=== PATIENT | female | born 1990 | race Two or more races ===

== ENCOUNTER 2016-08-31 16:21 | Emergency (ER) | payer MEDICAID ==
[~2016-08-31] VITALS: Ht 162.6 cm; Wt 81.6 kg
[~2016-08-31 16:21] MED LIST: IBUPROFEN600 MG ORAL; NITROFURANTOIN100 M2 ORAL; ZOFRAN ODT4 MG ORAL
--- NOTE | 2016-08-31 17:18 | Emergency Room Report ---
History of Present Illness General Chief Complaint: Pain Source: Patient (Ayse Grover) Present Illness HPI 26-year-old female presents to emergency Department complaining of left ankle pain 7/10 in severity x1 week status post mechanical slip and fall down stairs. Patient states that she was seen by her PCP who gave her radiology requisition however she did not receive the results of the imaging, and patient continues to have pain and swelling and is unable to get a hold of her doctor. Patient denies previous injury to the affected extremity. Patient states pain is worse with weightbearing. Patient denies hitting her head or loss of consciousness. Patient denies nausea or vomiting. Patient reports bruising to the left ankle. Denies numbness tingling or loss of sensation or gross motor movements of the extremities, incontinence of bowel or bladder. Denies CP, Palpitations, LOC, AMS, dizziness, Changes in Vision, Sensation, paresthesias, or a sudden severe headache. (Ayse Grover) Allergies: Coded Allergies: No Known Allergies (Unverified , 06/10/15) Patient History Past Medical History: see triage record Past Surgical History: none Pertinent Family History: none Last Menstrual Period: 08/07/16 Now: No Immunizations: UTD Reviewed Nursing Documentation: PMH: Agreed, PSxH: Agreed (Ayse Grover) Nursing Documentation-PMH Past Medical History: No Stated History (Ayse Grover) Review of Systems All Other Systems: negative except mentioned in HPI (Ayse Grover) Physical Exam Vital Signs Date Time Temp Pulse Resp B/P Pulse Ox O2 Delivery O2 Flow Rate FiO2 08/31/16 16:41 98.6 91 14 131/72 100 Room Air Sp02 EP Interpretation: reviewed, normal General Appearance: no apparent distress, alert, GCS 15, non-toxic Head: normocephalic, atraumatic Eyes: bilateral eye PERRL, bilateral eye normal inspection ENT: hearing grossly normal, normal pharynx, no angioedema, normal voice Neck: full range of motion, supple/symm/no masses Respiratory: chest non-tender, lungs clear, normal breath sounds, speaking full sentences Cardiovascular #1: regular rate, rhythm, no edema Gastrointestinal: non tender Rectal: deferred Genitourinary: normal inspection, no CVA tenderness Musculoskeletal: back normal, gait/station normal, normal range of motion, no calf tenderness, tender - TTP to the lateral left ankle, swelling noted. Neurologic: alert, oriented x3, responsive, motor strength/tone normal, sensory intact, speech normal Psychiatric: judgement/insight normal, memory normal, mood/affect normal, no suicidal/homicidal ideation Skin: normal color, no rash, warm/dry, well hydrated, hematoma - left lateral ankle has hematoma noted, and mild swelling. Lymphatic: no adenopathy (Ayse Grover) Procedures Splinting Splinting : Consent: Verbal Location: left ankle Pre-Made Type: KALPESH wrap Pre-Proc Neuro Vasc Exam: normal Post-Proc Neuro Vasc Exam: normal Patient Tolerated: Well Complications: None (Ayse rGover) Medical Decision Making PA Attestation Dr. Mcelroy is my supervising Physician whom patient management has been discussed with. (Ayse Grover) Diagnostic Impression: Primary Impression: Ankle sprain Qualified Codes: S93.402A - Sprain of unspecified ligament of left ankle, initial encounter ER Course Pt. presents to the ED c/o lateral left ankle pain status post falling down stairs approximately one week ago. Ddx considered but are not limited to Fracture, dislocation, contusion, Sprain/ Strain/Spasm, Epidural abscess, Neoplastic mets. Vital signs: are WNL, pt. is afebrile H&PE are most consistent with Sprain will r/o fx with imaging. ORDERS: - X-ray Left Ankle 3 views - negative for fx, Dislocation, or significant soft tissue injury, per preliminary read in ED by Dr. Mcelroy ED INTERVENTIONS: - 600mg IBU PO - Kalpesh wrap applied to the left ankle by medic technician. Pt. remains neurovascularly intact. -Pt is provided with crutches. DISCHARGE: At this time pt. is stable for d/c to home. Will provide printed patient care instructions, and any necessary prescriptions. Care plan and follow up instructions have been discussed with the patient prior to discharge. (Ayse Grover) ER Course I agree with PA HPI and PE, as well as their assessment/plan. I also concur with PA review of imaging and rhythm strip without additional interpretation. (CINDY MCELROY M.D.) Last Vital Signs Date Time Temp Pulse Resp B/P Pulse Ox O2 Delivery O2 Flow Rate FiO2 08/31/16 16:41 98.6 91 14 131/72 100 Room Air (Ayse Grover) Disposition: HOME, SELF-CARE Condition: Stable Scripts Ibuprofen* (MOTRIN*) 600 Mg Tablet 600 MG ORAL THREE TIMES A DAY, #30 TAB 0 Refills Prov: Ayse Grover 08/31/16 Patient Instructions: Ankle Sprain Additional Instructions: Take medications as directed. Follow up with PCP in 3-5 days Return sooner to ED if new symptoms occur, or current symptoms become worse. Do not drink alcohol, drive, or operate heavy machinery while taking [ ] as this may cause drowsiness. Ayse Grover Aug 31, 2016 17:18 CINDY MCELROY M.D. Sep 01, 2016 19:37
[2016-08-31] MEDS ORDERED: IBUPROFEN600 MG ORAL (17:36)
[2016-08-31 17:49] VITALS: BP 128/69
[2016-08-31 17:50] VITALS: BP 131/72
--- NOTE | 2016-09-13 14:10 | Diagnostic Imaging Report ---
Indication: PAIN Technique: 3 views of the left ankle Comparison: none Findings: No acute fractures. No dislocations. The joint spaces are preserved. Impression: Negative
== END 2016-08-31 17:50 | disposition home or self-care (01) ==
LOC: EMR 17:05
DX: S93.402A Sprain of unspecified ligament of left ankle, initial encounter (principal); W01.0XXA Fall on same level from slipping, tripping and stumbling without subsequent striking against object, initial encounter; Y93.9 Activity, unspecified; Y92.9 Unspecified place or not applicable
CPT/HCPCS: 99283

== ENCOUNTER 2016-09-24 13:48 | Emergency (ER) | payer MEDICAID ==
[~2016-09-24] VITALS: Ht 165.1 cm; Wt 81.6 kg
[2016-09-24] MEDS ORDERED: IBUPROFEN600 MG ORAL (14:23)
--- NOTE | 2016-09-24 14:23 | Emergency Room Report ---
History of Present Illness General Chief Complaint: General Complaint Source: Patient Present Illness HPI 26-year-old female presents emergency department complaining of continued pain in the right ankle status post being diagnosed with right ankle sprain about one month ago. Patient states that she was given a work note however at work he did not accommodate her or her work note. Patient states that she was still required to do long hours of prolonged standing in addition she walking. Patient states she continues to have pain despite taking Motrin. Patient denies followup with PCP. Patient also reports bilateral breast tenderness x1 year that is episodic in nature and usually resolves around her menstrual cycle time. Patient denies palpating breast masses or denies history of breast cancer in the family. Patient denies erythema, increased temperature to palpation, and denies dry nipples or nipple d/c. denies night sweats or changes in weight. Patient denies new fall or trauma other than not being able to rest the affected extremity. pt states pain is localized to right ankle and rates as 8/10 in severity exacerbated with prolonged weight bearing. Denies CP, Palpitations, LOC, AMS, dizziness, Changes in Vision, Sensation, paresthesias, or a sudden severe headache. Allergies: Coded Allergies: No Known Allergies (Unverified , 06/10/15) Patient History Past Medical History: see triage record Past Surgical History: none Pertinent Family History: none Last Menstrual Period: last month Now: No Immunizations: UTD Reviewed Nursing Documentation: PMH: Agreed, PSxH: Agreed Nursing Documentation-PMH Past Medical History: No Stated History Review of Systems All Other Systems: negative except mentioned in HPI Physical Exam Vital Signs Date Time Temp Pulse Resp B/P Pulse Ox O2 Delivery O2 Flow Rate FiO2 09/24/16 13:51 97.9 82 16 137/80 99 Room Air Sp02 EP Interpretation: reviewed, normal General Appearance: no apparent distress, alert, GCS 15, non-toxic Head: normocephalic, atraumatic Eyes: bilateral eye PERRL, bilateral eye normal inspection ENT: hearing grossly normal, normal pharynx, no angioedema, normal voice Neck: full range of motion, supple/symm/no masses Respiratory: chest non-tender, lungs clear, normal breath sounds, speaking full sentences, other - no evidence of infection to the breasts bilaterally: no erythema, no increased temperature to palpation, no palpable masses, no d/c noted. Cardiovascular #1: regular rate, rhythm, no edema Gastrointestinal: normal bowel sounds, non tender, soft, no guarding, no rebound Rectal: deferred Genitourinary: normal inspection, no CVA tenderness Musculoskeletal: back normal, gait/station normal, normal range of motion, non- tender, other - pt. is observed to be ambulatory without crutches, and is not wearing BERNABE wrap as recommended. no swelling noted, no bruising Neurologic: alert, oriented x3, responsive, motor strength/tone normal, sensory intact, speech normal Psychiatric: judgement/insight normal, memory normal, mood/affect normal, no suicidal/homicidal ideation Skin: normal inspection, normal color, no rash, warm/dry, other - pt. is observed to be ambulatory without crutches, and is not wearing BERNABE wrap as recommended. Lymphatic: no adenopathy Medical Decision Making PA Attestation Dr. hernandez is my supervising Physician whom patient management has been discussed with. Diagnostic Impression: Primary Impression: Right ankle sprain Qualified Codes: S93.401D - Sprain of unspecified ligament of right ankle, subsequent encounter Additional Impression: Breast tenderness in female ER Course 26-year-old female presents emergency department complaining of continued pain in the right ankle status post being diagnosed with right ankle sprain about one month ago. Patient states that she was given a work note however at work he did not accommodate her or her work note. Patient states that she was still required to do long hours of prolonged standing in addition she walking. Patient states she continues to have pain despite taking Motrin. Patient denies followup with PCP. Patient also reports bilateral breast tenderness x1 year that is episodic in nature and usually resolves around her menstrual cycle time. Patient denies palpating breast masses or denies history of breast cancer in the family. Patient denies erythema, increased temperature to palpation, and denies dry nipples or nipple d/c. Patient denies new fall or trauma other than not being able to rest the affected extremity. pt states pain is localized to right ankle and rates as 8/10 in severity exacerbated with prolonged weight bearing Ddx considered but are not limited to Fracture, dislocation, contusion, Sprain/ Strain/Spasm, Epidural abscess, Neoplastic mets., lipoma, mastitis, LAD Vital signs: are WNL, pt. is afebrile H&PE are most consistent with ankle sprain with delayed healing due to inability to properly rest ankle and non-compliant with conservative treatment. pt. is observed to be ambulatory without crutches, and is not wearing BERNABE wrap as recommended. ORDERS: - X-ray not required at this time, no new injury. Pt is recommended to follow up with PCP as soft tissue injuries not responsive to conservative treatment may warrant MRI. ED INTERVENTIONS: - d/w pt that she does not exhibit signs of infection of either of the breasts , and recommend follow up with OBGYN. DISCHARGE: At this time pt. is stable for d/c to home. Will provide printed patient care instructions, and any necessary prescriptions. Care plan and follow up instructions have been discussed with the patient prior to discharge. Last Vital Signs Date Time Temp Pulse Resp B/P Pulse Ox O2 Delivery O2 Flow Rate FiO2 09/24/16 13:51 97.9 82 16 137/80 99 Room Air Disposition: HOME, SELF-CARE Condition: Stable Scripts Ibuprofen* (MOTRIN*) 600 Mg Tablet 600 MG ORAL THREE TIMES A DAY, #30 TAB 0 Refills Prov: Ayse Grover 09/24/16 Patient Instructions: Ankle Sprain, [id number], Breast Tenderness Additional Instructions: Take medications as directed. -Follow up with PCP in 3-5 days if symptoms persist MRI imaging is recommended. - Follow up with OBGYN for outpatient evaluation of breast tenderness, there is no evidence of infection at this time. Return sooner to ED if new symptoms occur, or current symptoms become worse. - Please note that this Emergency Department Report was dictated using [employer] operator technology software, occasionally this can lead to erroneous entry secondary to interpretation by the dictation equipment. Ayse Grover Sep 24, 2016 14:23
[2016-09-24 14:37] VITALS: BP 137/80
== END 2016-09-24 14:37 | disposition home or self-care (01) ==
LOC: EMR 14:00
DX: S93.401D Sprain of unspecified ligament of right ankle, subsequent encounter (principal); N64.4 Mastodynia
CPT/HCPCS: 99283

== ENCOUNTER 2016-10-11 17:03 | Emergency (ER) | payer MEDICAID ==
[~2016-10-11] VITALS: Ht 165.1 cm; Wt 81.6 kg
[2016-10-11 17:18] VITALS: BP 114/70
[2016-10-11] MEDS ORDERED: TYLENOL EXTRA500 MG ORAL (17:23)
--- NOTE | 2016-10-11 17:23 | Emergency Room Report ---
History of Present Illness General Chief Complaint: Pain Source: Patient Present Illness HPI 26-year-old female presents to the emergency department complaining of continued 10 out of 10 pain in the left ankle x2 months. Patient was seen here in the emergency department on 2 prior occasions was previously diagnosed with ankle sprain after negative imaging patient denies new trauma or fall. Patient states previously prescribed Motrin was not helping and she did not followup with her PCP patient also states she has not been using Kalpesh wrap or crutches as previously prescribed. Patient denies nausea vomiting fevers chills, bruising patient reports swelling. She denies erythema or similar symptoms in other extremities or other joints. She denies abdominal pain rashes or recent illness. Patient states pain is localized it does not radiate. She also reports that she needs a note showing she was seen here in the ER today and is requesting additional work notes. Denies numbness tingling or loss of sensation or gross motor movements of the extremities, incontinence of bowel or bladder. Denies CP, Palpitations, LOC, AMS, dizziness, Changes in Vision, Sensation, paresthesias, or a sudden severe headache. Allergies: Coded Allergies: No Known Allergies (Unverified , 06/10/15) Patient History Past Medical History: see triage record Past Surgical History: none Pertinent Family History: none Last Menstrual Period: 09/23/16 Now: No Immunizations: UTD Reviewed Nursing Documentation: PMH: Agreed, PSxH: Agreed Nursing Documentation-PMH Past Medical History: No Stated History Review of Systems All Other Systems: negative except mentioned in HPI Physical Exam Vital Signs Date Time Temp Pulse Resp B/P Pulse Ox O2 Delivery O2 Flow Rate FiO2 10/11/16 17:12 98.2 76 17 114/70 98 Room Air Sp02 EP Interpretation: reviewed, normal General Appearance: no apparent distress, alert, GCS 15, non-toxic Head: normocephalic, atraumatic Eyes: bilateral eye PERRL, bilateral eye normal inspection ENT: hearing grossly normal, normal pharynx, no angioedema, normal voice Neck: full range of motion, supple/symm/no masses Respiratory: lungs clear, normal breath sounds, speaking full sentences Cardiovascular #1: regular rate, rhythm, no edema Cardiovascular #2: 2+ dorsalis pedis (R), 2+ dorsalis pedis (L) Musculoskeletal: back normal, gait/station normal, normal range of motion, no calf tenderness, other - Pt has FROM without pain, and is observed to be ambulatory, with a normal steady gait, no observed compensation durring gait, pt. able to bear full weight, tender - mild left ankle TTP, no swelling, no erythema, no bruising, no obvious deformity Neurologic: alert, oriented x3, responsive, motor strength/tone normal, sensory intact, normal gait, speech normal Psychiatric: judgement/insight normal, memory normal, mood/affect normal, no suicidal/homicidal ideation Skin: normal color, no rash, warm/dry, well hydrated, other - no erythema, no increased temperature to palpation Lymphatic: no adenopathy Medical Decision Making PA Attestation Dr. Hogan is my supervising Physician whom patient management has been discussed with. Diagnostic Impression: Primary Impression: Encounter for medical screening examination Additional Impression: Ankle pain Qualified Codes: M25.572 - Pain in left ankle and joints of left foot ER Course 26-year-old female presents to the emergency department complaining of continued 10 out of 10 pain in the left ankle x2 months. Patient was seen here in the emergency department on 2 prior occasions was previously diagnosed with ankle sprain after negative imaging patient denies new trauma or fall. Patient states previously prescribed Motrin was not helping and she did not followup with her PCP because he does not take walk-ins. patient also states she has not been using Kalpesh wrap or crutches as previously prescribed. Patient denies nausea vomiting fevers chills, bruising patient reports swelling. She denies erythema or similar symptoms in other extremities or other joints. She denies abdominal pain rashes or recent illness. Patient states pain is localized it does not radiate. She also reports that she needs a note showing she was seen here in the ER today and is requesting additional work notes. Ddx considered but are not limited to Fracture, dislocation, contusion, Sprain/ Strain/Spasm, Epidural abscess, Neoplastic mets. Vital signs: are WNL, pt. is afebrile H&PE are most consistent with ankle pain, no acute injury, non-compliance with kalpesh wrap/crutches. pt. does not exhibit signs of compensation with gait, no obvious deformities, no swelling , erythema, or increased temperature to palpation, no evidence of infection. ORDERS: - X-ray's not required at this time, previous imaging was negative, and pt. has no new trauma. ED INTERVENTIONS: - Tylenol PO -- Pt. habitually asks for work notes, and long periods of light duty for work, I have seen this pt. on two previous ED visits for this complaint, and have discussed each time that she needs to follow up with PCP if symptoms continue. on the last visit I explained to the pt. that she has been given the maximum amount of days off. also she was non-compliant on previous visits for use of kalpesh wrap and crutches I discussed with patient that conservative treatment for non-acute injuries only works if consistent with treatment. d/w pt. that she is stable for outpatient evaluation, and that I do not suspect an emergent / life-threatening condition at this time. DISCHARGE: At this time pt. is stable for d/c to home. Will provide printed patient care instructions, and any necessary prescriptions. Care plan and follow up instructions have been discussed with the patient prior to discharge. Last Vital Signs Date Time Temp Pulse Resp B/P Pulse Ox O2 Delivery O2 Flow Rate FiO2 10/11/16 17:12 98.2 76 17 114/70 98 Room Air Disposition: HOME, SELF-CARE Condition: Stable Scripts Acetaminophen* (TYLENOL EXTRA STRENGTH*) 500 Mg Tablet 500 MG ORAL Q8H, #30 TAB 0 Refills Prov: Ayse Grover 10/11/16 Referrals: [facility]ERR[facility] (PCP) Patient Instructions: Ankle Pain Additional Instructions: Take medications as directed. Follow up with PCP in 3-5 days * You have received a medical screening exam here in the ED, at this time you are cleared from an emergency medical standpoint, and are Stable for Outpatient follow up. There is no emergency medical condition to treat at this time, further evaluation for your symptoms needs to be done as an outpatient basis. - Please note that this Emergency Department Report was dictated using [employer] electrical technology software, occasionally this can lead to erroneous entry secondary to interpretation by the dictation equipment. Ayse Grover Oct 11, 2016 17:23
[2016-10-11 17:42] VITALS: BP 114/70
== END 2016-10-11 17:43 | disposition home or self-care (01) ==
LOC: EMR 17:15
DX: M25.572 Pain in left ankle and joints of left foot (principal); Z00.00 Encounter for general adult medical examination without abnormal findings
CPT/HCPCS: 99283

== ENCOUNTER 2018-01-05 12:55 | Emergency (ER) | payer MEDICAID ==
[~2018-01-05] VITALS: Ht 165.1 cm; Wt 86.2 kg
[~2018-01-05 12:55] MED LIST changes: +TYLENOL EXTRA500 MG ORAL
[2018-01-05 13:23] VITALS: BP 120/76
--- NOTE | 2018-01-05 13:30 | Emergency Room Report ---
History of Present Illness General Chief Complaint: Pain Source: Patient Present Illness HPI 27-year-old female presents emergency department complaining of 8 out of 10 in severity abdominal pain which is exacerbated upon attempts to have bowel movements. Patient reports she has a bowel movement every other day she had one today however she has moderate pain with attempts to pass stool. Patient denies blood she denies history of hemorrhoids she denies recent opiate use. Patient states she took oral pill 3 weeks ago and she believes was successful. Patient reports some vaginal discharge she states she believes the disease as she has some itching and she recently had STD testing performed which was negative during her last visit with [facility] 3 weeks ago. She denies cervical tenderness/dyspareunia. Patient denies nausea or vomiting, fevers or chills. Denies abdominal tenderness. She states she is able to pass gas. Denies dysuria, hematuria, urinary frequency or urgency. Allergies: Coded Allergies: No Known Allergies (Unverified , 06/10/15) Patient History Past Medical History: see triage record Past Surgical History: none Last Menstrual Period: 11/04/17 Now: No : 3 Para: 1 Nursing Documentation-[facility] Past Medical History: No Stated History Review of Systems All Other Systems: negative except mentioned in HPI Physical Exam Vital Signs Date Time Temp Pulse Resp B/P (MAP) Pulse Ox O2 Delivery O2 Flow Rate FiO2 01/05/18 13:08 98.1 99 18 120/76 96 Room Air 98.1 Sp02 EP Interpretation: reviewed, normal General Appearance: no apparent distress, alert, GCS 15, non-toxic Head: normocephalic, atraumatic ENT: hearing grossly normal, normal voice Neck: full range of motion Respiratory: lungs clear, normal breath sounds, speaking full sentences Cardiovascular #1: regular rate, rhythm, no edema Gastrointestinal: normal bowel sounds, non tender, soft, non-distended, no guarding Rectal: deferred Genitourinary: normal inspection, no CVA tenderness Musculoskeletal: back normal, gait/station normal, normal range of motion, non- tender Neurologic: alert, oriented x3, responsive, motor strength/tone normal, sensory intact, speech normal, grossly normal Psychiatric: judgement/insight normal Skin: normal color, no rash, warm/dry, well hydrated Medical Decision Making PA Attestation Dr. Jamehdor is my supervising Physician whom patient management has been discussed with. Diagnostic Impression: Primary Impression: UTI (urinary tract infection) Qualified Codes: N30.00 - Acute cystitis without hematuria Additional Impressions: Pain with bowel movements Straining during bowel movements ER Course 27-year-old female presents emergency department complaining of 8 out of 10 in severity abdominal pain which is exacerbated upon attempts to have bowel movements. Patient reports she has a bowel movement every other day she had one today however she has moderate pain with attempts to pass stool. Patient denies blood she denies history of hemorrhoids she denies recent opiate use. Patient states she took oral pill 3 weeks ago and she believes was successful. Patient reports some vaginal discharge she states she believes the disease as she has some itching and she recently had STD testing performed which was negative during her last visit with [facility] 3 weeks ago. She denies cervical tenderness/dyspareunia. Patient denies nausea or vomiting, fevers or chills. Denies abdominal tenderness. She states she is able to pass gas. Denies dysuria, hematuria, urinary frequency or urgency. Ddx considered but are not limited to constipation , appendicitis, SBO, ectopic , PID, tubo-ovarian abscess, Incomplete . Vital signs: are WNL, pt. is afebrile H&PE are most consistent with constipation. bowl sounds are normo active. ORDERS: Abdominal KUB--- ED INTERVENTIONS: -Diflucan PO -Pyridium PO Discussed with this patient the results of her laboratory testing as well as imaging. She participated in treatment plan production consisting of oral laxatives in addition to antibiotics for UTI and antifungal for yeast infection. Gave patient strict return to ER precautions for worsening or new symptoms. Otherwise to follow-up with her [facility] she has an appointment scheduled for the . Encouraged her to retain this appointment. DISCHARGE: At this time pt. is stable for d/c to home. Will provide printed patient care instructions, and any necessary prescriptions. Care plan and follow up instructions have been discussed with the patient prior to discharge. Labs Test 01/05/18 13:15 Urine Color Yellow Urine Appearance Cloudy Urine pH 6 (4.5-8.0) Urine Specific [place] 1.015 (1.005-1.035) Urine Protein Negative (NEGATIVE) Urine Glucose (UA) Negative (NEGATIVE) Urine Ketones Negative (NEGATIVE) Urine Occult Blood 3+ (NEGATIVE) Urine Nitrite Positive (NEGATIVE) Urine Bilirubin Negative (NEGATIVE) Urine Urobilinogen Normal MG/DL (0.0-1.0) Urine Leukocyte Esterase 1+ (NEGATIVE) Urine RBC 2-4 /HPF (0 - 2) Urine WBC 5-10 /HPF (0 - 2) Urine Squamous Epithelial Cells Few /LPF (NONE/OCC) Urine Bacteria Many /HPF (NONE) Urine HCG, Qualitative Negative (NEGATIVE) Other X-Ray Diagnostic Results Other X-Ray Diagnostic Results : X-Ray ordered: abdominal KUB # of Views/Limited Vs Complete: 1 View Indication: Pain EP Interpretation: Yes JLUIS Xray: Interpretation reviewed, by supervising MD Troy Hogan reviewed imaging, and agrees with findings. Interpretation: nonspecific bowel gas, other - Moderate stool on in the colon, no small bowel distention no masses. Impression: No acute disease Electronically Signed by: Ayse Grover PA-C Last Vital Signs Date Time Temp Pulse Resp B/P (MAP) Pulse Ox O2 Delivery O2 Flow Rate FiO2 01/05/18 13:23 98.1 98 18 120/76 96 Room Air 98.1 Disposition: HOME, SELF-CARE Condition: Stable Scripts Nitrofurantoin Monohyd/M-Cryst* (MACROBID 100 MG*) 100 Mg Capsule 100 MG ORAL EVERY 12 HOURS for 5 Days, #10 CAP Prov: Ayse Grover 01/05/18 Fluconazole (FLUCONAZOLE) 100 Mg Tablet 100 MG ORAL DAILY, #3 TAB 0 Refills Prov: Ayse Grover 01/05/18 Docusate Sodium* (COLACE*) 100 Mg Capsule 100 MG ORAL THREE TIMES A DAY, #30 CAP Prov: Ayse Grover 01/05/18 Lactulose (LACTULOSE*) 20 Gm/30 Ml Solution 30 ML ORAL TID for 2 Days, #180 ML 0 Refills Prov: Ayse Grover 01/05/18 Departure Forms: Return to Work Return to Work Date: Jan 08, 2018 Work Restrictions: None Other Restrictions: May return sooner if symptoms have resolved. Return to Full Activity: Jan 08, 2018 Patient Instructions: Constipation, Adult, [id number], Urinary Tract Infection, [id number] Additional Instructions: Take medications as directed. Follow up with a Primary Care Provider in 3-5 days, even if your symptoms have resolved. Retain your appointment with your OBGYN on the , you will still need to follow up with them Return sooner to ED if new symptoms occur, or current symptoms become worse. - Please note that this Emergency Department Report was dictated using [employer] technology software, occasionally this can lead to erroneous entry secondary to interpretation by the dictation equipment. Ayse Grover Jan 05, 2018 13:30
[2018-01-05 14:21] LABS: APPEARANCE,URINE CLOUDY; BILIRUBIN, URINE NEGATIVE (NEGATIVE); GLUCOSE, URINE (UA) NEGATIVE (NEGATIVE); KETONES,URINE NEGATIVE (NEGATIVE); LEUKOCYTE ESTERASE ,URINE 1+ (NEGATIVE); NITRITE,URINE POSITIVE (NEGATIVE); PH,URINE 6 (4.5-8.0); PROTEIN,URINE NEGATIVE (NEGATIVE); UROBILINOGEN,URINE NORMAL MG/DL (0.0-1.0)
[2018-01-05 14:22] LABS: COLOR,URINE YELLOW
[2018-01-05] MEDS ORDERED: Fluconazole 100mg tab ORAL ONE (15:15)
[2018-01-05] MEDS ORDERED: Phenazopyridine 200mg tab ORAL ONE (15:15)
[2018-01-05] MEDS ORDERED: LACTULOSE20 GM/301 ORAL (15:24)
[2018-01-05] MEDS ORDERED: COLACE100 MG ORAL (15:24)
[2018-01-05] MEDS ORDERED: NITROFURANTOIN100 M2 ORAL (15:24)
[2018-01-05] MEDS ORDERED: FLUCONAZOLE100 MG ORAL (15:24)
[2018-01-05 16:21] VITALS: BP 117/73
--- NOTE | 2018-01-05 17:36 | Diagnostic Imaging Report ---
Indication: Lower abdominal pain, constipation Technique: Supine view of the abdomen Comparison: none Findings: Bowel gas pattern is unremarkable. Moderate amount of stool is seen in the ascending and proximal transverse colon. No small bowel distention. No unusual masses or calcifications. There is thoracolumbar scoliotic deformity. Impression: No acute process. Findings as noted
== END 2018-01-05 16:24 | disposition home or self-care (01) ==
LOC: EMR 13:26
DX: N30.00 Acute cystitis without hematuria (principal)
CPT/HCPCS: 74018; 81003; 81025; 87086; 87181; 99284